=== PATIENT | male | born 1930 | race Caucasian/White ===

== ENCOUNTER 2017-07-23 16:41 | Emergency (ER) | payer SELFPAY, OTHER, MEDICARE | END 2017-07-24 00:07 | disposition left against medical advice (07) | LOC: E/R 16:41 | DX: Z53.21 Procedure and treatment not carried out due to patient leaving prior to being seen by health care provider (principal) ==

== ENCOUNTER 2017-07-30 12:16 | Inpatient (IN) | payer MEDICARE, OTHER ==
[2017-07-30] MEDS: DIPHTH/TET/ACEL PERTUSS (ADULT) 0.5 ML VIAL IM* (13:46)
[2017-07-30 13:57] LABS: ADD MAN DIFF? NO
[2017-07-30 13:59] LABS: WHITE BLOOD COUNT 10.5 10^3/ul (4.8-10.8)
[2017-07-30 13:59] LABS: BASOPHILS % 0.4 % (0.0-2.0); EOSINOPHILS % 0.2 % (0.0-7.0); HEMATOCRIT 28.5 % (42.0-52.0); HEMOGLOBIN 9.7 g/dl (14.0-18.0); LYMPHOCYTES # 1.2 10^3/ul (0.8-2.9); LYMPHOCYTES % 11.6 % (15.0-51.0); MEAN CORPUSCULAR HEMOGLOBIN 35.3 pg (29.0-33.0); MEAN CORPUSCULAR VOLUME 103.6 fl (82.0-101.0); MEAN PLATELET VOLUME 10.4 fl (7.4-10.4); MONOCYTE # 0.7 10^3/ul (0.3-0.9); NEUTROPHIL # 8.2 10^3/ul (1.6-7.5); NEUTROPHILS % 77.8 % (39.0-77.0); NUCLEATED RED BLOOD CELLS # 0.1 10^3/ul (0.0-0.0); NUCLEATED RED BLOOD CELLS% 0.8 /100WBC (0.0-0.0); PLATELET COUNT 284 10^3/UL (140-415); RED BLOOD COUNT 2.75 10^6/ul (4.70-6.10); RED CELL DISTRIBUTION WIDTH 16.3 % (11.5-14.5)
[2017-07-30 14:18] LABS: PROTIME 14.4 Sec (11.9-14.9); PT RATIO 1.1
[2017-07-30 14:19] LABS: PARTIAL THROMBOPLASTIN TIME 38.8 Sec (25.0-35.0)
[2017-07-30 14:22] LABS: ALANINE AMINOTRANSFERASE 34 IU/L (13-69); ALBUMIN 3.9 g/dl (3.3-4.9); ALBUMIN/GLOBULIN RATIO 0.95; ALKALINE PHOSPHATASE 244 IU/L (42-121); ANION GAP 22 (8-16); ASPARTATE AMINO TRANSFERASE 60 IU/L (15-46); BILIRUBIN,INDIRECT 0.5 mg/dl (0-1.1); BILIRUBIN,TOTAL 0.5 mg/dl (0.2-1.3); BLOOD UREA NITROGEN 97 mg/dl (7-20); CARBON DIOXIDE 14 mmol/L (21-31); CHLORIDE 108 mmol/L (97-110); CREATININE 5.11 mg/dl (0.61-1.24); GLUCOSE 102 mg/dl (70-220); POTASSIUM 4.2 mmol/L (3.5-5.1); SODIUM 140 mmol/L (135-144)
[2017-07-30 14:34] LABS: B-TYPE NATRIURETIC PEPTIDE 4960 PG/ML (0-450)
[2017-07-30] MEDS: ASPIRIN 81 MG TAB PO (16:30)
[2017-07-30] MEDS ORDERED: DIAZEPAM 5 MG TAB PO (18:00)
[2017-07-30] MEDS ORDERED: ONDANSETRON 4 MG TAB PO (18:00)
[2017-07-30] MEDS ORDERED: NACL 0.9% 3 ML SYG IV (18:00)
[2017-07-30] MEDS ORDERED: LORAZEPAM 0.5 MG TAB PO (18:00)
[2017-07-30] MEDS ORDERED: NITROGLYCERIN (SL) 0.4 MG TAB SL (18:00)
[2017-07-30] MEDS ORDERED: GLUCOSE GEL 15 GRAM TUBE BUCCAL (18:30)
[2017-07-30] MEDS ORDERED: GLUCOSE GEL 15 GRAM TUBE PO ×2 (18:30)
[2017-07-30] MEDS ORDERED: DEXTROSE 50% 50 ML SYRINGE IV ×2 (18:30)
[2017-07-30] MEDS ORDERED: GLUCAGON 1 MG INJ IM (18:30)
[2017-07-30 18:48] LABS: HEPATITIS B SURFACE ANTIGEN NEGATIVE (NEGATIVE)
[2017-07-30 19:05] LABS: HEPATITIS B SURFACE ANTIBODY NEGATIVE (NEGATIVE)
[2017-07-30 19:05] LABS: HEPATITIS C VIRAL ANTIBODY NEGATIVE (NEGATIVE)
[2017-07-30] MEDS ORDERED: FAMOTIDINE 20 MG TAB PO (21:00)
[2017-07-30] MEDS: CLOPIDOGREL 75 MG TAB PO (21:00)
[2017-07-30] MEDS: CEFTRIAXONE 1 GM/50 ML (PMX) 50 ML IVPB (21:34)
[2017-07-30] MEDS: NA BICARBONATE 650 MG TAB PO (21:35)
[2017-07-30] MEDS: THIAMINE 100 MG TAB PO (21:35)
[2017-07-30] MEDS: AZITHROMYCIN 250 MG TAB PO (21:35)
[2017-07-30] MEDS: SOD CHLORIDE 0.45% 1,000 ML IV (21:36)
[2017-07-30] MEDS: FLUTICASONE 0.05% 16 GM NAS SPRAY NASAL (21:36)
[2017-07-30] MEDS: CALCIUM CARBONATE 500 MG CHEW TAB PO (21:43)
[2017-07-30] MEDS: ATORVASTATIN 20 MG TAB PO (21:43)
[2017-07-30] MEDS: HYDROCODONE/APAP (5/325) TAB PO (21:51)
[2017-07-30] MEDS: MIRTAZAPINE 15 MG TAB PO (22:59)
[2017-07-31] MEDS: SOD CHLORIDE 0.45% 1,000 ML IV ×3 (04:00→21:38)
[2017-07-31] MEDS: PANTOPRAZOLE (EC) 40 MG TAB PO (05:41)
[2017-07-31] MEDS: CEFTRIAXONE 1 GM/50 ML (PMX) 50 ML IVPB ×2 (08:47→21:37)
[2017-07-31] MEDS: CALCIUM CARBONATE 500 MG CHEW TAB PO ×4 (08:47→21:34)
[2017-07-31] MEDS: DRONABINOL 2.5 MG CAP PO ×2 (08:48→21:35)
[2017-07-31] MEDS: CALCITRIOL 0.25 MCG CAP PO (08:48)
[2017-07-31] MEDS: FOLIC ACID 1 MG TAB PO ×2 (08:48→13:30)
[2017-07-31] MEDS: ASPIRIN (EC) 81 MG TAB PO (08:48)
[2017-07-31] MEDS: LINAGLIPTIN 5 MG TABLET PO (08:48)
[2017-07-31] MEDS: NA BICARBONATE 650 MG TAB PO ×3 (08:48→21:36)
[2017-07-31] MEDS: ALLOPURINOL 100 MG TAB PO (08:48)
[2017-07-31] MEDS: BARIUM SULF 2% 450 ML BTL (BERRY SMOOTHIE) PO (08:52)
[2017-07-31] MEDS: LEVOTHYROXINE 88 MCG TAB PO (08:52)
[2017-07-31 09:27] LABS: ADD MAN DIFF? NO
[2017-07-31 09:31] LABS: BASOPHILS % 0.3 % (0.0-2.0); EOSINOPHILS # 0.1 10^3/ul (0.0-0.5); EOSINOPHILS % 1.2 % (0.0-7.0); HEMATOCRIT 23.8 % (42.0-52.0); HEMOGLOBIN 8.2 g/dl (14.0-18.0); LYMPHOCYTES # 1.9 10^3/ul (0.8-2.9); LYMPHOCYTES % 18.9 % (15.0-51.0); MEAN CORPUSCULAR HEMOGLOBIN 35.3 pg (29.0-33.0); MEAN CORPUSCULAR HGB CONC 34.5 g/dl (32.0-37.0); MEAN CORPUSCULAR VOLUME 102.6 fl (82.0-101.0); MONOCYTE # 0.8 10^3/ul (0.3-0.9); MONOCYTES % 7.8 % (0.0-11.0); NEUTROPHIL # 7.2 10^3/ul (1.6-7.5); NEUTROPHILS % 70.3 % (39.0-77.0); NUCLEATED RED BLOOD CELLS # 0.1 10^3/ul (0.0-0.0); NUCLEATED RED BLOOD CELLS% 0.6 /100WBC (0.0-0.0); PLATELET COUNT 232 10^3/UL (140-415); RED BLOOD COUNT 2.32 10^6/ul (4.70-6.10); RED CELL DISTRIBUTION WIDTH 16.3 % (11.5-14.5)
[2017-07-31 09:31] LABS: WHITE BLOOD COUNT 10.2 10^3/ul (4.8-10.8)
[2017-07-31 09:50] LABS: MAGNESIUM 1.5 mg/dl (1.7-2.5)
[2017-07-31 09:50] LABS: PHOSPHORUS 6.1 mg/dl (2.5-4.9)
[2017-07-31 09:59] LABS: ALANINE AMINOTRANSFERASE 40 IU/L (13-69); ALBUMIN 3.2 g/dl (3.3-4.9); ALKALINE PHOSPHATASE 202 IU/L (42-121); ANION GAP 20 (8-16); ASPARTATE AMINO TRANSFERASE 42 IU/L (15-46); BILIRUBIN,INDIRECT 0.1 mg/dl (0-1.1); BILIRUBIN,TOTAL 0.1 mg/dl (0.2-1.3); BLOOD UREA NITROGEN 90 mg/dl (7-20); CALCIUM 8.3 mg/dl (8.4-10.2); CARBON DIOXIDE 12 mmol/L (21-31); CHLORIDE 109 mmol/L (97-110); CREATININE 4.49 mg/dl (0.61-1.24); GLUCOSE 98 mg/dl (70-220); POTASSIUM 3.8 mmol/L (3.5-5.1); SODIUM 137 mmol/L (135-144); TOTAL PROTEIN 6.4 g/dl (6.1-8.1)
[2017-07-31] MEDS: SOD FERRIC GLUC COMPLX 125 MG in SOD CHLORIDE 0.9% 100 ML IVPB (11:22)
[2017-07-31] MEDS: LACTATED RINGER'S 500 ML IV (13:49)
[2017-07-31] MEDS: VENLAFAXINE (XR) 75 MG CAP PO (14:43)
[2017-07-31] MEDS: TESTOSTERONE CYPIONATE 200 MG/ML INJ IM (14:44)
[2017-07-31] MEDS: CYANOCOBALAMIN 1000 MCG INJ IM (14:45)
[2017-07-31 16:25] LABS: IRON 91 ug/dl (35-150)
[2017-07-31 16:35] LABS: % IRON SATURATION 41 % SAT (22-52); TOTAL IRON BINDING CAPACITY 220 ug/dl (241-421)
[2017-07-31] MEDS: EPOETIN 10000 UNITS/1 ML INJ (ESRD) SC (17:15)
[2017-07-31] MEDS: MIRTAZAPINE 15 MG TAB PO (21:35)
[2017-07-31] MEDS: ATORVASTATIN 20 MG TAB PO (21:35)
[2017-07-31] MEDS: THIAMINE 100 MG TAB PO (21:35)
[2017-07-31] MEDS: FLUTICASONE 0.05% 16 GM NAS SPRAY NASAL (21:36)
[2017-08-01] MEDS: SOD CHLORIDE 0.45% 1,000 ML IV (04:00)
[2017-08-01 05:59] LABS: ADD MAN DIFF? NO
[2017-08-01 06:14] LABS: BASOPHILS % 0.3 % (0.0-2.0); EOSINOPHILS # 0.1 10^3/ul (0.0-0.5); EOSINOPHILS % 0.8 % (0.0-7.0); HEMATOCRIT 22.4 % (42.0-52.0); HEMOGLOBIN 7.9 g/dl (14.0-18.0); LYMPHOCYTES # 1.3 10^3/ul (0.8-2.9); LYMPHOCYTES % 13.1 % (15.0-51.0); MEAN CORPUSCULAR HEMOGLOBIN 35.9 pg (29.0-33.0); MEAN CORPUSCULAR HGB CONC 35.3 g/dl (32.0-37.0); MEAN CORPUSCULAR VOLUME 101.8 fl (82.0-101.0); MONOCYTE # 0.9 10^3/ul (0.3-0.9); MONOCYTES % 8.6 % (0.0-11.0); NEUTROPHIL # 7.5 10^3/ul (1.6-7.5); NEUTROPHILS % 75.1 % (39.0-77.0); NUCLEATED RED BLOOD CELLS% 0.4 /100WBC (0.0-0.0); PLATELET COUNT 208 10^3/UL (140-415); RED CELL DISTRIBUTION WIDTH 16.5 % (11.5-14.5)
[2017-08-01] MEDS: LEVOTHYROXINE 88 MCG TAB PO (06:17)
[2017-08-01] MEDS: PANTOPRAZOLE (EC) 40 MG TAB PO (06:17)
[2017-08-01 07:00] LABS: ANION GAP 17 (8-16); BLOOD UREA NITROGEN 88 mg/dl (7-20); CALCIUM 7.9 mg/dl (8.4-10.2); CARBON DIOXIDE 16 mmol/L (21-31); CHLORIDE 107 mmol/L (97-110); CREATININE 4.45 mg/dl (0.61-1.24); GLUCOSE 97 mg/dl (70-220); POTASSIUM 3.7 mmol/L (3.5-5.1); SODIUM 136 mmol/L (135-144)
[2017-08-01] MEDS: FOLIC ACID 1 MG TAB PO ×2 (09:00→09:01)
[2017-08-01] MEDS: ALLOPURINOL 100 MG TAB PO (09:01)
[2017-08-01] MEDS: CLOPIDOGREL 75 MG TAB GTB (09:01)
[2017-08-01] MEDS: VENLAFAXINE (XR) 75 MG CAP PO (09:01)
[2017-08-01] MEDS: DRONABINOL 2.5 MG CAP PO (09:01)
[2017-08-01] MEDS: CALCITRIOL 0.25 MCG CAP PO (09:02)
[2017-08-01] MEDS: CEFTRIAXONE 1 GM/50 ML (PMX) 50 ML IVPB ×2 (09:02→22:17)
[2017-08-01] MEDS: LINAGLIPTIN 5 MG TABLET PO (09:02)
[2017-08-01] MEDS: ASPIRIN (EC) 81 MG TAB PO (09:02)
[2017-08-01] MEDS: NA BICARBONATE 650 MG TAB PO ×3 (09:02→22:16)
[2017-08-01] MEDS: CALCIUM CARBONATE 500 MG CHEW TAB PO ×4 (09:02→22:16)
[2017-08-01 15:06] LABS: ADD UMIC NO; UR ASCORBIC ACID NEGATIVE (NEGATIVE); UR BILIRUBIN (Dip) NEGATIVE (NEGATIVE); UR BLOOD (Dip) NEGATIVE (NEGATIVE); UR CLARITY CLEAR (CLEAR); UR COLOR YELLOW (YELLOW); UR GLUCOSE (Dip) NEGATIVE (NEGATIVE); UR KETONES (Dip) NEGATIVE (NEGATIVE); UR LEUKOCYTE ESTERASE (Dip) NEGATIVE Leu/ul (NEGATIVE); UR NITRITE (Dip) NEGATIVE (NEGATIVE); UR SPECIFIC GRAVITY (Dip) 1.012 (1.003-1.030); UR TOTAL PROTEIN (Dip) NEGATIVE (NEGATIVE); UR UROBILINOGEN (Dip) NEGATIVE (NEGATIVE)
[2017-08-01] MEDS: MAGNESIUM SULFATE 2 GM/50 ML 50 ML IVPB (15:28)
[2017-08-01] MEDS: LACTATED RINGER'S 500 ML IV (15:29)
[2017-08-01] MEDS ORDERED: MIRTAZAPINE 15 MG TAB PO (21:00)
[2017-08-01] MEDS: ATORVASTATIN 20 MG TAB PO (22:16)
[2017-08-01] MEDS: MIRTAZAPINE 15 MG TAB PO (22:17)
[2017-08-01] MEDS: THIAMINE 100 MG TAB PO (22:18)
[2017-08-01] MEDS: DOCUSATE SODIUM 100 MG CAP PO (22:26)
[2017-08-01] MEDS: FLUTICASONE 0.05% 16 GM NAS SPRAY NASAL (22:30)
[2017-08-02] MEDS: LEVOTHYROXINE 88 MCG TAB PO (06:49)
[2017-08-02] MEDS: PANTOPRAZOLE (EC) 40 MG TAB PO (06:52)
[2017-08-02 07:45] LABS: ADD MAN DIFF? NO
[2017-08-02 07:48] LABS: WHITE BLOOD COUNT 9.8 10^3/ul (4.8-10.8)
[2017-08-02 07:48] LABS: BASOPHILS % 0.2 % (0.0-2.0); EOSINOPHILS # 0.1 10^3/ul (0.0-0.5); EOSINOPHILS % 0.7 % (0.0-7.0); HEMATOCRIT 24.6 % (42.0-52.0); HEMOGLOBIN 8.4 g/dl (14.0-18.0); LYMPHOCYTES # 1.2 10^3/ul (0.8-2.9); LYMPHOCYTES % 12.2 % (15.0-51.0); MEAN CORPUSCULAR HEMOGLOBIN 35.4 pg (29.0-33.0); MEAN CORPUSCULAR HGB CONC 34.1 g/dl (32.0-37.0); MEAN CORPUSCULAR VOLUME 103.8 fl (82.0-101.0); MEAN PLATELET VOLUME 10.2 fl (7.4-10.4); MONOCYTE # 0.9 10^3/ul (0.3-0.9); MONOCYTES % 9.2 % (0.0-11.0); NEUTROPHIL # 7.5 10^3/ul (1.6-7.5); NEUTROPHILS % 75.9 % (39.0-77.0); NUCLEATED RED BLOOD CELLS% 0.2 /100WBC (0.0-0.0); PLATELET COUNT 210 10^3/UL (140-415); RED BLOOD COUNT 2.37 10^6/ul (4.70-6.10); RED CELL DISTRIBUTION WIDTH 17.6 % (11.5-14.5)
[2017-08-02 08:14] LABS: ALANINE AMINOTRANSFERASE 36 IU/L (13-69); ALBUMIN 2.8 g/dl (3.3-4.9); ALBUMIN/GLOBULIN RATIO 0.87; ALKALINE PHOSPHATASE 227 IU/L (42-121); ANION GAP 17 (8-16); ASPARTATE AMINO TRANSFERASE 25 IU/L (15-46); BILIRUBIN,INDIRECT 0.1 mg/dl (0-1.1); BILIRUBIN,TOTAL 0.1 mg/dl (0.2-1.3); BLOOD UREA NITROGEN 76 mg/dl (7-20); CALCIUM 8.4 mg/dl (8.4-10.2); CARBON DIOXIDE 17 mmol/L (21-31); CHLORIDE 109 mmol/L (97-110); CREATININE 4.27 mg/dl (0.61-1.24); GLUCOSE 93 mg/dl (70-220); PHOSPHORUS 5.2 mg/dl (2.5-4.9); POTASSIUM 3.6 mmol/L (3.5-5.1); SODIUM 139 mmol/L (135-144)
[2017-08-02] MEDS: FOLIC ACID 1 MG TAB PO ×2 (09:00→09:20)
[2017-08-02] MEDS: NA BICARBONATE 650 MG TAB PO ×3 (09:19→20:28)
[2017-08-02] MEDS: ASPIRIN (EC) 81 MG TAB PO (09:19)
[2017-08-02] MEDS: LINAGLIPTIN 5 MG TABLET PO (09:19)
[2017-08-02] MEDS: CLOPIDOGREL 75 MG TAB GTB (09:19)
[2017-08-02] MEDS: CEFTRIAXONE 1 GM/50 ML (PMX) 50 ML IVPB ×2 (09:21→20:28)
[2017-08-02] MEDS: CALCITRIOL 0.25 MCG CAP PO (09:24)
[2017-08-02] MEDS: ALLOPURINOL 100 MG TAB PO (09:25)
[2017-08-02] MEDS: CALCIUM CARBONATE 500 MG CHEW TAB PO ×4 (09:25→20:28)
[2017-08-02] MEDS: LACTATED RINGER'S 500 ML IV (15:42)
[2017-08-02] MEDS: METOPROLOL (XL) 25 MG TAB PO (15:43)
[2017-08-02] MEDS: ATORVASTATIN 20 MG TAB PO (20:28)
[2017-08-02] MEDS: MIRTAZAPINE 15 MG TAB PO (20:28)
[2017-08-02] MEDS: FLUTICASONE 0.05% 16 GM NAS SPRAY NASAL (20:28)
[2017-08-02] MEDS: EPOETIN 10000 UNITS/1 ML INJ (ESRD) SC (20:30)
[2017-08-02] MEDS: THIAMINE 100 MG TAB PO (21:58)
[2017-08-03] MEDS: DOCUSATE SODIUM 100 MG CAP PO ×2 (06:49→22:17)
[2017-08-03] MEDS: PANTOPRAZOLE (EC) 40 MG TAB PO (06:49)
[2017-08-03] MEDS: LEVOTHYROXINE 88 MCG TAB PO (06:49)
[2017-08-03 07:23] LABS: ADD MAN DIFF? NO
[2017-08-03 07:26] LABS: BASOPHILS % 0.4 % (0.0-2.0); EOSINOPHILS % 1.2 % (0.0-7.0); HEMATOCRIT 24.4 % (42.0-52.0); HEMOGLOBIN 8.2 g/dl (14.0-18.0); LYMPHOCYTES # 1.3 10^3/ul (0.8-2.9); LYMPHOCYTES % 11.8 % (15.0-51.0); MEAN CORPUSCULAR HEMOGLOBIN 35.2 pg (29.0-33.0); MEAN CORPUSCULAR HGB CONC 33.6 g/dl (32.0-37.0); MEAN CORPUSCULAR VOLUME 104.7 fl (82.0-101.0); MEAN PLATELET VOLUME 10.3 fl (7.4-10.4); MONOCYTE # 1.1 10^3/ul (0.3-0.9); MONOCYTES % 9.6 % (0.0-11.0); NEUTROPHIL # 8.4 10^3/ul (1.6-7.5); NEUTROPHILS % 75.3 % (39.0-77.0); NUCLEATED RED BLOOD CELLS% 0.3 /100WBC (0.0-0.0); PLATELET COUNT 188 10^3/UL (140-415); RED BLOOD COUNT 2.33 10^6/ul (4.70-6.10); RED CELL DISTRIBUTION WIDTH 18.6 % (11.5-14.5)
[2017-08-03 07:26] LABS: WHITE BLOOD COUNT 11.2 10^3/ul (4.8-10.8)
[2017-08-03 07:27] LABS: BASOPHIL # 0.1 10^3/ul (0.0-0.1); EOSINOPHILS # 0.1 10^3/ul (0.0-0.5)
[2017-08-03 07:48] LABS: ALANINE AMINOTRANSFERASE 29 IU/L (13-69); ALBUMIN 2.9 g/dl (3.3-4.9); ALBUMIN/GLOBULIN RATIO 0.82; ALKALINE PHOSPHATASE 209 IU/L (42-121); ANION GAP 17 (8-16); ASPARTATE AMINO TRANSFERASE 20 IU/L (15-46); BLOOD UREA NITROGEN 75 mg/dl (7-20); CALCIUM 8.5 mg/dl (8.4-10.2); CARBON DIOXIDE 18 mmol/L (21-31); CHLORIDE 108 mmol/L (97-110); CREATININE 3.92 mg/dl (0.61-1.24); GLUCOSE 97 mg/dl (70-220); POTASSIUM 3.7 mmol/L (3.5-5.1); SODIUM 139 mmol/L (135-144); TOTAL PROTEIN 6.4 g/dl (6.1-8.1)
[2017-08-03] MEDS: FOLIC ACID 1 MG TAB PO ×2 (09:00→09:25)
[2017-08-03] MEDS: CLOPIDOGREL 75 MG TAB GTB (09:24)
[2017-08-03] MEDS: LINAGLIPTIN 5 MG TABLET PO (09:25)
[2017-08-03] MEDS: NA BICARBONATE 650 MG TAB PO ×3 (09:25→22:17)
[2017-08-03] MEDS: CALCIUM CARBONATE 500 MG CHEW TAB PO ×4 (09:25→22:17)
[2017-08-03] MEDS: CALCITRIOL 0.25 MCG CAP PO (09:25)
[2017-08-03] MEDS: ALLOPURINOL 100 MG TAB PO (09:25)
[2017-08-03] MEDS: ASPIRIN (EC) 81 MG TAB PO (09:26)
[2017-08-03] MEDS: METOPROLOL (XL) 25 MG TAB PO (09:27)
[2017-08-03] MEDS: CEFTRIAXONE 1 GM/50 ML (PMX) 50 ML IVPB ×2 (09:37→22:17)
[2017-08-03] MEDS: MIRTAZAPINE 15 MG TAB PO (18:15)
[2017-08-03] MEDS: FLUTICASONE 0.05% 16 GM NAS SPRAY NASAL (22:17)
[2017-08-03] MEDS: ATORVASTATIN 20 MG TAB PO (22:17)
[2017-08-03] MEDS: THIAMINE 100 MG TAB PO (22:17)
[2017-08-04] MEDS: LEVOTHYROXINE 88 MCG TAB PO (06:44)
[2017-08-04] MEDS: PANTOPRAZOLE (EC) 40 MG TAB PO (06:44)
[2017-08-04 07:45] LABS: ADD MAN DIFF? NO
[2017-08-04 07:53] LABS: BASOPHILS % 0.3 % (0.0-2.0); EOSINOPHILS # 0.1 10^3/ul (0.0-0.5); EOSINOPHILS % 0.9 % (0.0-7.0); HEMATOCRIT 23.4 % (42.0-52.0); HEMOGLOBIN 8.1 g/dl (14.0-18.0); LYMPHOCYTES # 1.3 10^3/ul (0.8-2.9); LYMPHOCYTES % 11.2 % (15.0-51.0); MEAN CORPUSCULAR HGB CONC 34.6 g/dl (32.0-37.0); MEAN PLATELET VOLUME 10.3 fl (7.4-10.4); MONOCYTE # 1.2 10^3/ul (0.3-0.9); MONOCYTES % 10.4 % (0.0-11.0); NEUTROPHILS % 76.4 % (39.0-77.0); NUCLEATED RED BLOOD CELLS% 0.2 /100WBC (0.0-0.0); PLATELET COUNT 179 10^3/UL (140-415); RED BLOOD COUNT 2.25 10^6/ul (4.70-6.10); RED CELL DISTRIBUTION WIDTH 18.5 % (11.5-14.5)
[2017-08-04 07:53] LABS: WHITE BLOOD COUNT 11.7 10^3/ul (4.8-10.8)
[2017-08-04 08:23] LABS: ALANINE AMINOTRANSFERASE 33 IU/L (13-69); ALBUMIN 2.6 g/dl (3.3-4.9); ALBUMIN/GLOBULIN RATIO 0.89; ALKALINE PHOSPHATASE 200 IU/L (42-121); ANION GAP 18 (8-16); ASPARTATE AMINO TRANSFERASE 18 IU/L (15-46); BLOOD UREA NITROGEN 71 mg/dl (7-20); CALCIUM 8.3 mg/dl (8.4-10.2); CARBON DIOXIDE 16 mmol/L (21-31); CHLORIDE 109 mmol/L (97-110); CREATININE 3.55 mg/dl (0.61-1.24); GLUCOSE 87 mg/dl (70-220); POTASSIUM 3.6 mmol/L (3.5-5.1); SODIUM 139 mmol/L (135-144); TOTAL PROTEIN 5.5 g/dl (6.1-8.1)
[2017-08-04] MEDS: CEFTRIAXONE 1 GM/50 ML (PMX) 50 ML IVPB ×2 (09:33→21:18)
[2017-08-04] MEDS: NA BICARBONATE 650 MG TAB PO ×3 (09:33→21:18)
[2017-08-04] MEDS: CALCITRIOL 0.25 MCG CAP PO (09:33)
[2017-08-04] MEDS: FOLIC ACID 1 MG TAB PO (09:34)
[2017-08-04] MEDS: ASPIRIN (EC) 81 MG TAB PO (09:34)
[2017-08-04] MEDS: CLOPIDOGREL 75 MG TAB GTB (09:34)
[2017-08-04] MEDS: LINAGLIPTIN 5 MG TABLET PO (09:34)
[2017-08-04] MEDS: ALLOPURINOL 100 MG TAB PO (09:34)
[2017-08-04] MEDS: METOPROLOL (XL) 25 MG TAB PO (09:36)
[2017-08-04] MEDS: CALCIUM CARBONATE 500 MG CHEW TAB PO ×4 (09:38→21:18)
[2017-08-04] MEDS ORDERED: BARIUM SULF 2% 450 ML BTL (BERRY SMOOTHIE) PO (12:30)
[2017-08-04] MEDS: LACTULOSE 30ML CUP PO (12:33)
[2017-08-04] MEDS: LACTATED RINGER'S 500 ML IV (13:03)
[2017-08-04] MEDS: IOHEXOL 14.3 MG(I)/ML (ADULT) BTL PO (17:06)
[2017-08-04] MEDS: MIRTAZAPINE 15 MG TAB PO (19:05)
[2017-08-04] MEDS: THIAMINE 100 MG TAB PO (21:18)
[2017-08-04] MEDS: ATORVASTATIN 20 MG TAB PO (21:18)
[2017-08-04] MEDS: FLUTICASONE 0.05% 16 GM NAS SPRAY NASAL (21:18)
[2017-08-05] MEDS: PANTOPRAZOLE (EC) 40 MG TAB PO (06:13)
[2017-08-05] MEDS: LEVOTHYROXINE 88 MCG TAB PO (06:13)
[2017-08-05] MEDS: METOPROLOL (XL) 25 MG TAB PO (09:00)
[2017-08-05] MEDS: CEFTRIAXONE 1 GM/50 ML (PMX) 50 ML IVPB ×2 (09:06→21:00)
[2017-08-05] MEDS: ALLOPURINOL 100 MG TAB PO (09:07)
[2017-08-05] MEDS: CALCIUM CARBONATE 500 MG CHEW TAB PO ×4 (09:07→21:00)
[2017-08-05] MEDS: NA BICARBONATE 650 MG TAB PO ×3 (09:07→21:00)
[2017-08-05] MEDS: FOLIC ACID 1 MG TAB PO (09:08)
[2017-08-05] MEDS: CLOPIDOGREL 75 MG TAB GTB (09:08)
[2017-08-05] MEDS: ASPIRIN (EC) 81 MG TAB PO (09:11)
[2017-08-05] MEDS: LINAGLIPTIN 5 MG TABLET PO (09:11)
[2017-08-05] MEDS: CALCITRIOL 0.25 MCG CAP PO (10:00)
[2017-08-05 11:36] LABS: ADD MAN DIFF? NO
[2017-08-05 11:48] LABS: BASOPHILS % 0.3 % (0.0-2.0); EOSINOPHILS # 0.1 10^3/ul (0.0-0.5); HEMATOCRIT 23.8 % (42.0-52.0); LYMPHOCYTES # 1.1 10^3/ul (0.8-2.9); LYMPHOCYTES % 9.4 % (15.0-51.0); MEAN CORPUSCULAR HEMOGLOBIN 36.2 pg (29.0-33.0); MEAN CORPUSCULAR HGB CONC 33.6 g/dl (32.0-37.0); MEAN CORPUSCULAR VOLUME 107.7 fl (82.0-101.0); MEAN PLATELET VOLUME 10.8 fl (7.4-10.4); MONOCYTE # 1.3 10^3/ul (0.3-0.9); MONOCYTES % 10.8 % (0.0-11.0); NEUTROPHILS % 77.5 % (39.0-77.0); NUCLEATED RED BLOOD CELLS% 0.3 /100WBC (0.0-0.0); PLATELET COUNT 177 10^3/UL (140-415); RED BLOOD COUNT 2.21 10^6/ul (4.70-6.10); RED CELL DISTRIBUTION WIDTH 18.8 % (11.5-14.5)
[2017-08-05 11:48] LABS: WHITE BLOOD COUNT 11.5 10^3/ul (4.8-10.8)
[2017-08-05 12:19] LABS: ANION GAP 15 (8-16); BLOOD UREA NITROGEN 72 mg/dl (7-20); CALCIUM 8.6 mg/dl (8.4-10.2); CARBON DIOXIDE 21 mmol/L (21-31); CHLORIDE 105 mmol/L (97-110); GLUCOSE 126 mg/dl (70-220); POTASSIUM 3.5 mmol/L (3.5-5.1); SODIUM 137 mmol/L (135-144)
[2017-08-05] MEDS: POTASSIUM CHLORIDE (SR) 20 MEQ TAB PO (13:55)
[2017-08-05] MEDS: MIRTAZAPINE 15 MG TAB PO (18:07)
[2017-08-05] MEDS: EPOETIN 10000 UNITS/1 ML INJ (ESRD) SC (18:08)
[2017-08-05] MEDS: CYANOCOBALAMIN 500 MCG TAB PO (18:51)
[2017-08-05] MEDS: ATORVASTATIN 20 MG TAB PO (21:00)
[2017-08-05] MEDS: THIAMINE 100 MG TAB PO (21:00)
[2017-08-05] MEDS: FLUTICASONE 0.05% 16 GM NAS SPRAY NASAL (21:00)
[2017-08-06] MEDS: HYDROCODONE/APAP (5/325) TAB PO ×2 (01:01→16:39)
[2017-08-06] MEDS: PANTOPRAZOLE (EC) 40 MG TAB PO (05:18)
[2017-08-06] MEDS: LEVOTHYROXINE 88 MCG TAB PO (06:02)
[2017-08-06 08:34] LABS: ADD MAN DIFF? NO
[2017-08-06 08:53] LABS: WHITE BLOOD COUNT 9.8 10^3/ul (4.8-10.8)
[2017-08-06 08:53] LABS: BASOPHILS % 0.3 % (0.0-2.0); EOSINOPHILS # 0.2 10^3/ul (0.0-0.5); EOSINOPHILS % 1.6 % (0.0-7.0); HEMATOCRIT 22.8 % (42.0-52.0); HEMOGLOBIN 7.6 g/dl (14.0-18.0); LYMPHOCYTES # 1.2 10^3/ul (0.8-2.9); LYMPHOCYTES % 12.5 % (15.0-51.0); MEAN CORPUSCULAR HEMOGLOBIN 35.8 pg (29.0-33.0); MEAN CORPUSCULAR HGB CONC 33.3 g/dl (32.0-37.0); MEAN CORPUSCULAR VOLUME 107.5 fl (82.0-101.0); MEAN PLATELET VOLUME 10.7 fl (7.4-10.4); MONOCYTE # 1.2 10^3/ul (0.3-0.9); NEUTROPHIL # 7.1 10^3/ul (1.6-7.5); NEUTROPHILS % 72.5 % (39.0-77.0); PLATELET COUNT 157 10^3/UL (140-415); RED BLOOD COUNT 2.12 10^6/ul (4.70-6.10); RED CELL DISTRIBUTION WIDTH 18.6 % (11.5-14.5)
[2017-08-06 09:05] LABS: PROTIME 17.4 Sec (11.9-14.9); PT RATIO 1.4
[2017-08-06 09:06] LABS: LACTIC ACID 0.8 mmol/L (0.5-2.0)
[2017-08-06 09:12] LABS: PARTIAL THROMBOPLASTIN TIME 46.8 Sec (25.0-35.0)
[2017-08-06 09:25] LABS: ALANINE AMINOTRANSFERASE 38 IU/L (13-69); ALBUMIN 2.3 g/dl (3.3-4.9); ALBUMIN/GLOBULIN RATIO 0.76; ALKALINE PHOSPHATASE 205 IU/L (42-121); ANION GAP 15 (8-16); ASPARTATE AMINO TRANSFERASE 26 IU/L (15-46); BLOOD UREA NITROGEN 75 mg/dl (7-20); CALCIUM 8.3 mg/dl (8.4-10.2); CARBON DIOXIDE 20 mmol/L (21-31); CHLORIDE 106 mmol/L (97-110); CREATININE 3.86 mg/dl (0.61-1.24); GLUCOSE 113 mg/dl (70-220); LIPASE 11 U/L (23-300); MAGNESIUM 1.9 mg/dl (1.7-2.5); PHOSPHORUS 4.8 mg/dl (2.5-4.9); POTASSIUM 3.9 mmol/L (3.5-5.1); SODIUM 137 mmol/L (135-144); TOTAL PROTEIN 5.3 g/dl (6.1-8.1)
[2017-08-06 09:28] LABS: AMYLASE < 30 U/L (11-123)
[2017-08-06] MEDS: CEFTRIAXONE 1 GM/50 ML (PMX) 50 ML IVPB (09:32)
[2017-08-06] MEDS: CYANOCOBALAMIN 500 MCG TAB PO (09:33)
[2017-08-06] MEDS: CALCIUM CARBONATE 500 MG CHEW TAB PO ×3 (09:33→16:39)
[2017-08-06] MEDS: FOLIC ACID 1 MG TAB PO (09:33)
[2017-08-06] MEDS: CLOPIDOGREL 75 MG TAB GTB (09:33)
[2017-08-06] MEDS: ASPIRIN (EC) 81 MG TAB PO (09:33)
[2017-08-06] MEDS: NA BICARBONATE 650 MG TAB PO ×2 (09:33→12:45)
[2017-08-06] MEDS: LINAGLIPTIN 5 MG TABLET PO (09:33)
[2017-08-06] MEDS: CALCITRIOL 0.25 MCG CAP PO (09:33)
[2017-08-06] MEDS: ALLOPURINOL 100 MG TAB PO (09:39)
[2017-08-06] MEDS: METOPROLOL (XL) 25 MG TAB PO (09:42)
[2017-08-06 10:31] LABS: B-TYPE NATRIURETIC PEPTIDE 8080 PG/ML (0-450)
== END 2017-08-06 18:00 | disposition expired ==
LOC: MS4 19:34 → E/R 12:16 → MS4 16:31
PROVIDERS: Internal Medicine
DX: I21.4 Non-ST elevation (NSTEMI) myocardial infarction (principal); J18.9 Pneumonia, unspecified organism; E11.22 Type 2 diabetes mellitus with diabetic chronic kidney disease; N17.9 Acute kidney failure, unspecified; N18.4 Chronic kidney disease, stage 4 (severe); D64.9 Anemia, unspecified; I12.9 Hypertensive chronic kidney disease with stage 1 through stage 4 chronic kidney disease, or unspecified chronic kidney disease; S60.511A Abrasion of right hand, initial encounter; N25.81 Secondary hyperparathyroidism of renal origin; F33.9 Major depressive disorder, recurrent, unspecified; I46.9 Cardiac arrest, cause unspecified; Z90.5 Acquired absence of kidney; S00.83XA Contusion of other part of head, initial encounter; W18.30XA Fall on same level, unspecified, initial encounter; S60.512A Abrasion of left hand, initial encounter; J32.0 Chronic maxillary sinusitis; I25.10 Atherosclerotic heart disease of native coronary artery without angina pectoris; N40.0 Benign prostatic hyperplasia without lower urinary tract symptoms; E53.8 Deficiency of other specified B group vitamins; M10.9 Gout, unspecified; Z85.07 Personal history of malignant neoplasm of pancreas; Z85.528 Personal history of other malignant neoplasm of kidney; R63.4 Abnormal weight loss; Z68.24 Body mass index [BMI] 24.0-24.9, adult; E83.42 Hypomagnesemia
CPT/HCPCS: 31500; 36415; 70450; 71045; 72125; 74150; 74176; 80048; 80053; 81003; 82150; 82728; 82962; 83540; 83605; 83690; 83735; 83880; 84100; 84443; 84484; 85025; 85610; 85651; 85730; 86706; 86708; 86803; 86850; 86900; 86901; 87040; 87340; 90471; 90715; 92610; 92950; 93005; 93306; 93880; 97110; 97162; 97166; 97530; 99285-25